=== PATIENT | female | born 1930 | race Caucasian/White ===

== ENCOUNTER 2017-02-26 17:25 | Inpatient (IN) | payer MEDICARE, BC ==
[~2017-02-26] VITALS: Ht 152.4 cm; Wt 72.1 kg
--- NOTE | ~2017-02-26 | HP ---
PATIENT'S NAME: SHAUN BHATTI [facility] AGE: 86 Y [address] ROOM: [place] [address] LOCATION: GPCU ADMIT DATE: 02/26/2017 History & Physical DISCHARGE DATE: FAMILY PHYSICIAN: Esperanza Mosley MD ATTENDING PHYSICIAN: Esperanza Mosley DATE OF SERVICE: CHIEF COMPLAINT: Weakness. HISTORY OF PRESENT ILLNESS: The patient is an 86-year-old female who was brought in by family with considerable increased weakness over the course of the day. She does have known Parkinson's and her states that Dr. Michael has been changing some of her medications and he feels that it may be related to this. History seems to be somewhat unclear about how long that she has been on the recent change of medications as the bottle says that of beginning of February, but he states it has been just this past week. They deny her having any cold symptoms, respiratory symptoms, or any illness up to today's appointment. It was noted that she had a temperature upon admission to the emergency room. PAST MEDICAL HISTORY: Significant for coronary artery disease, chronic renal failure stage 3, hypertension, hypertriglyceridemia, hypokalemia, hyponatremia, iron deficiency anemia, paroxysmal atrial fibrillation, and prediabetes. PREVIOUS SURGICAL HISTORY: Includes a heart catheterization in [address] Gloria with stent placement as well as a pacemaker. CURRENT MEDICATIONS: 1. Omeprazole 40 mg q.a.m. 2. Potassium chloride 20 mEq daily. 3. Pravastatin 40 mg daily. 4. Xarelto 15 mg daily. 5. Trihexyphenidyl 2.5 mg b.i.d. 6. Norvasc 10 mg daily. 7. TriCor 145 mg daily. 8. Flonase nasal spray. 9. Xyzal 5 mg daily. 10. Cozaar 100 mg daily. 11. Metoprolol 25 mg daily. ALLERGIES: PATIENT'S NAME: SHAUN BHATTI [facility] AGE: 86 Y [address] ROOM: [place] [address] LOCATION: GPCU ADMIT DATE: 02/26/2017 History & Physical DISCHARGE DATE: FAMILY PHYSICIAN: Esperanza Mosley MD ATTENDING PHYSICIAN: Dimitri,Esperanza M TO CLARITHROMYCIN, CODEINE, VYTORIN, PENICILLIN, SULFA, AND AMLODIPINE PER CLINIC NOTE FACE SHEET. FAMILY HISTORY: Noncontributory. SOCIAL HISTORY: The patient lives at home, does not smoke or use alcohol. REVIEW OF SYSTEMS: GENERAL: No recent weight loss or weight gain. Does have current fever. HEENT: Has had an infection in her left eye recently. CARDIOVASCULAR: Does have a pacemaker. Denies any chest pain. PULMONARY: Denies shortness of breath, cough, or hemoptysis. GI: No diarrhea, constipation, or abdominal pain. MUSCULOSKELETAL: Does have diffuse weakness. PHYSICAL EXAMINATION: VITAL SIGNS: Please refer to nursing notes for details. GENERAL: This is an alert female who does know her current state of place, date is unknown. HEENT: Left eye is little swollen. Conjunctivae are clear. Mouth moist. NECK: Supple with no lymphadenopathy. HEART: Regular. LUNGS: Clear to auscultation bilaterally. ABDOMEN: Obese, soft, and nontender. : Not done. EXTREMITIES: No clubbing, cyanosis, or edema. Good pedal pulses. LABORATORY DATA: Lactate of 1.4. CBC with white count of 10 with 87% neutrophils, 6.8% lymphocytes; hemoglobin 12.5. INR 1.07. Urinalysis showed 2-5 red blood cells, 2-5 epithelials with rare bacteria. Culture is pending. Procalcitonin is negative. CMP is stable. Cardiac troponin is negative. ProBNP is 1744. PET CT was negative. ASSESSMENT: 1. Weakness. 2. Parkinson's. 3. Change in mental status. 4. Hypertension. 5. Elevated proBNP. 6. Hyperlipidemia. PLAN: PATIENT'S NAME: SHAUN BHATTI [facility] AGE: 86 Y [address] ROOM: [address] [address] LOCATION: GPCU ADMIT DATE: 02/26/2017 History & Physical DISCHARGE DATE: FAMILY PHYSICIAN: Esperanza Mosley MD ATTENDING PHYSICIAN: Esperanza Mosley At this time, we will admit for admission due to the weakness and new fever. Urine culture as well as blood cultures have been obtained. We will cover with Levaquin 500 mg IV for tonight until preliminary cultures are back. We will also give her one dose of Lasix p.o. We will have Dr. Michael see in the morning as he has been managing her Parkinson's. Dr. Mosley will resume care as well. MD LAURA BARRETT/nu /[id number] D: [id number] T: [id number] HISTORY & PHYSICAL
--- NOTE | ~2017-02-26 | ECHO ---
Transthoracic Echocardiography Report (TTE) Demographics Patient Name SHAUN BHATTI Date of Study 03/10/2017 Patient Number [id number] Visit Number [id number] Date of 1930 Room Number G6315 Accession Number [id number] Gender Female Age 86 year(s) Referring Dimitri Galeas MD Kiln Burner Tutu Gonzalez RVGricel, Physician RDCS Physician Interpreting Patti Burroughs Mold Parter Physician A Supervising Ordering Physician Patti Burroughs MD/NEENA Garcia MD Nurse Stress Tool And Die Manager Conclusions Summary Limited echo for follow up pericardiocentesis to assess pericardial effusion. The estimated left ventricular ejection fraction is 60-65%. Trivial global pericardial effusion. There is no echocardiographic evidence of cardiac tamponade. Procedure Type of Study TTE procedure:Echo Limited w/o Contrast. Procedure Date Date: 03/10/2017 Start: 10:08 AM Study Location: Inpatient Portable Technical Quality: Adequate visualization Indications:Follow up post pericardiocentesis. Appropriate Use Criteria: 8 Patient Status: Routine HR: 60 bpm BP: 161/92 mmHg Allergies - Codiene. - Penicillin. - Sulfa. - Penicillin. - Sulfa. - Codiene. M-Mode/2D Measurements EF Estimated: 60 % Findings Left Ventricle Estimated EF: 60 %. Pericardial Effusion Trivial global pericardial effusion. There is no echocardiographic evidence of cardiac tamponade. Signature dtt: Sharon Armstrong dtd: 03/10/17 1008 Physician Self Edit
--- NOTE | ~2017-02-26 | DS ---
PATIENT'S NAME: SHAUN BHATTI [facility] AGE: 86 Y [address] ROOM: [address] [address] [facility] ADMIT DATE: 02/28/2017 Discharge Summary DISCHARGE DATE: 03/13/2017 FAMILY PHYSICIAN: Esperanza Mosley MD ATTENDING PHYSICIAN: Esperanza Mosley ADDENDUM: Discharge process took approximately 45 minutes. MD DARIUS HAYDENE/modl /[id number] d: 03/14/17 0141 t: 03/15/17 0848, DISCHARGE SUMMARY
--- NOTE | ~2017-02-26 | CATH ---
Cardiac Diagnostic Report Demographics Patient Name DAVY Garcia Gender Female Date of 1930 Age 86 year(s) Patient Number [id number] Date of Study 03/08/2017 Visit Number [id number] Room Number G6315 [place] [id number] Ht 152.4 cm Wt 74.39 kg Referring Dimitri Galeas MD Primary Physician Physician Performing Efstratiou Secondary Physician Physician Manjeet Gracia MD Diagnostic Efstratiou Assisting Physician Physician Manjeet Garcia MD Interventional Physician Associate Professor Of Archaeology Physician Findings and Conclusions Diagnostic Findings and Conclusion Pericardial fluid. Diagnostic Recommendations Pericardiocentesis. 470 ml of dark, sanguinous fluid drained with no complications. Procedure Description The patient was brought to the diagnostic cardiac catheterization-EP laboratory in the fasting, non-sedated state. Informed consent was obtained in the written and verbal form after the risks and benefits were explained. The patient had no further questions and agreed to proceed. The planned puncture-incision site(s) were shaved and prepped with ChloraPrep and draped in the usual sterile manner. Supplemental oxygen was delivered by a registered nurse under physician guidance. Surface ECG rhythm, blood pressure measurement, and pulse oximetry were monitored throughout the procedure. Pericardiocentesis. A long, thin-walled needle was advanced with fluoroscopic monitoring, from the subxiphoid approach, until fluid was aspirated from the pericardial space. At the conclusion of the procedure, the pericardial catheter was sutured in place and attached to a specimen bag under gravity drainage. A sterile dressing was applied. The patient was transferred to a regular nursing floor via cart accompanied by a nurse. The patient left the laboratory in stable condition. Diagnostic Cath Status: Urgent Procedure Procedure Type Diagnostic procedure:Misc:, Periocardiocentesis The procedure was explained in detail to the patient. Risks, complications and alternative treatments were reviewed. Written consent was obtained. Medications Reviewed with Patient prior to Procedure. Procedure Data Procedure Date Date: 03/08/2017Start: 04:45 PMEnd: 05:20 PM Contrast Material - Isovue 3700 ml Fluoroscopy Time: Diagnostic: 2:26 minutes. Total: 2:26 minutes. Fluoroscopy Dose: Diagnostic: 27 mGy. Total: 27 mGy. Medical History Performed Procedures and Imaging Results - Echocardiographywas performed on 03/06/2017. Allergies - Codiene. - Penicillin. - Sulfa. - Penicillin. - Sulfa. - Codiene. Risk Factors The patient risk factors include:hypertension and family history of premature CAD. Admission Data Admission Date: 02/28/2017 Admission Time: 11:00 AM Admit Source: Emergency department Insurance Payors: Medicare. Hemodynamics Condition: Rest O2 Consumption: Estimated: 145.99Heart Rate: 60 bpm Shunts Oxygen Values O2 Capacity 142.8 O2 Consumption 145.99 Signatures dtt: Sharon Armstrong dtd: 03/08/17 2113 Physician Self Edit
--- NOTE | ~2017-02-26 | ER ---
PATIENT'S NAME: SHAUN BHATTI [facility] AGE: 86 Y [address] ROOM: [address] [place], [place] [address] LOCATION: GPCU ADMIT DATE: 02/26/2017 ER/Outpatient Report DISCHARGE DATE: FAMILY PHYSICIAN: Esperanza Mosley MD ATTENDING PHYSICIAN: Esperanza Mosley HISTORY OF PRESENT ILLNESS: This is an 86-year-old female who was signed out to me at change of shift from Dr. Dodd. Briefly, she is coming in with altered mental status, generalized weakness, and fever 101.7 here. Lab work had been sent and she was pending lab work, imaging, and reassessment. So, when I evaluated the patient, the patient is alert and oriented to who she is, where she is, but she is slow to answer questions which her family says is not normal for her. She also appears to have generalized weakness. She has decreased strength in bilateral lower and upper extremities, but it is not worse on one side. LABORATORY DATA AND X-RAYS: So, the CT head initially is negative for any stroke or bleed. Her chest x- ray appears unremarkable as well. Her EKG shows a ventricularly paced rhythm which is same as before. Lactic acid is 1.4. WBC is 10, H and H is 12.5/37.2, platelets are 418. No bandemia. PTT is 24, PT 11.2, INR is 1.07. Procalcitonin is less than 0.05. Her CMS shows a sodium of 131, potassium 4.5, chloride 99, CO2 is 23. BUN is 12, creatinine is 0.9. Alkaline phosphatase is 83, AST is 23, ALT 17, GFR 58, troponin is less than 0.04. ProBNP is 1744. UA shows leukocytes of 25, but negative nitrites, 0 to 2 wbcs, and rare bacteria. I do not think that is the cause of her fever. I went back to reassess her after she had received some antipyretics and she still continues to be weak. Given her age and comorbidities, we would admit her. Discussed this with Dr. Grace Fairchild covering for Dr. Mosley. The patient will be admitted in stable condition. IMPRESSION: Generalized weakness, fever. MD VIJAYA ABBOTT/nu /[id number] d: 02/27/17 0418 t: 02/27/17 0608, OUTPATIENT REPORT
--- NOTE | ~2017-02-26 | ER ---
PATIENT'S NAME: SHAUN BHATTI [facility] AGE: 86 Y [address] ROOM: [place] [address] LOCATION: GPCU ADMIT DATE: 02/26/2017 ER/Outpatient Report DISCHARGE DATE: FAMILY PHYSICIAN: Esperanza Mosley MD ATTENDING PHYSICIAN: Esperanza Mosley Time of Arrival: 1724. Time Seen: 1724. IDENTIFICATION: 86-year-old female. CHIEF COMPLAINT: Weakness. HISTORY OF PRESENT ILLNESS: The patient is an 86-year-old female, who lives at home with her . She has Parkinson disease. Per her family, she has become more and more weak over the past 3 days. Her speech was difficult to understand today and she was weak. They called thinking that maybe she had stroke-like symptoms. Pre- hospital, EMS reported a temperature of 102. She was negative on their stroke screening and she was transported to the hospital. On arrival here, the patient is confused. Some history is obtained from her, but most is obtained from the paramedics. The patient denies any complaints. PAST MEDICAL HISTORY: ALLERGIES: TO CODEINE, PENICILLIN, AND SULFA. CURRENT MEDICATIONS: 1. Primidone 50 mg 2 tabs in the morning and 3 at bedtime, but they were reportedly weaning this, so I do not know the accurate dose. 2. Trihexyphenidyl 5 mg b.i.d. 3. KCl 20 mEq daily. 4. Losartan 100 mg daily. 5. Omeprazole 40 mg daily. 6. Amlodipine 10 mg daily. 7. Fenofibrate 145 mg daily. 8. Metoprolol ER 25 mg daily. 9. Xarelto 15 mg daily. 10. Levocetirizine 5 mg at bedtime. 11. Pravastatin 40 mg at bedtime. 12. Furosemide 40 mg daily. 13. Metoprolol 25 mg daily. PATIENT'S NAME: SHAUN BHATTI [facility] AGE: 86 Y [address] ROOM: [place] [address] LOCATION: GPCU ADMIT DATE: 02/26/2017 ER/Outpatient Report DISCHARGE DATE: FAMILY PHYSICIAN: Esperanza Mosley MD ATTENDING PHYSICIAN: Esperanza Mosley 14. Omeprazole 40 mg daily. MEDICAL PROBLEMS: Parkinson disease, hyperlipidemia, hypertension, atrial fibrillation, on chronic anticoagulation, bilateral hearing aids, congestive heart failure. PRIOR SURGERIES: Pacemaker, tonsillectomy, and cataract surgery. SOCIAL HISTORY: The patient lives at home with her here in [place]. Tobacco use, none noted. Alcohol use, unknown. Drug use, unknown. FAMILY HISTORY: Unknown. REVIEW OF SYSTEMS: Really unable to obtain from this patient. PHYSICAL EXAMINATION: VITAL SIGNS: Height 5 feet, weight 54.49 kg, blood pressure 203/80, recheck was 180/80, pulse 57, respirations 20, temperature 101.7, sats 92% on room air. GENERAL: 86-year-old female, who is difficult to understand and leading a little bit to the right. HEENT: Head: Normocephalic. Ears; TMs not visualized to both eyes. Eyes; pupils equal. The patient does have a quite a bit of mattering from her left eye. Nose; mucosa pink. No lesions. Mouth; no lesions. Pharynx benign. NECK: Supple. No lymphadenopathy. No nuchal rigidity. LUNGS: Clear to auscultation. Few rales in the bases. HEART: Regular rate and rhythm. ABDOMEN: Bowel sounds present. Soft, nondistended, nontender. SKIN: [place], warm, and dry. No lesions or rashes noted. NEUROLOGIC: The patient is alert, but not oriented to place, time, or situation. Cranial nerves 2 through 12 grossly intact. Motor strength 5/5 throughout. Sensation is intact to light touch. The patient has Edmundo wraps on both of her lower extremities, these were removed. She has no ulcers or rashes underneath them. She does have some 1+ bilateral lower extremity edema. No calf tenderness. IMPRESSION: Labs have been ordered to include CBC, blood cultures x2. Cath, UA, urine culture, CMS, lactate, procalcitonin, troponin, proBNP, PT, PTT, one-view chest x-ray, and an EKG as well as head CT. It is shift change and Dr. Mobley will assume care. PATIENT'S NAME: SHAUN BHATTI [facility] AGE: 86 Y [address] ROOM: [place] [address] LOCATION: GPCU ADMIT DATE: 02/26/2017 ER/Outpatient Report DISCHARGE DATE: FAMILY PHYSICIAN: Esperanza Mosley MD ATTENDING PHYSICIAN: Esperanza Mosley MD NAGA CASTANO/nu /[id number] d: 02/26/172316 t: 03/06/172030, OUTPATIENT REPORT
--- NOTE | ~2017-02-26 | CON ---
PATIENT'S NAME: SHAUN BHATTI [facility] AGE: 86 Y [address] ROOM: [address] [place], [place] [address] [facility] ADMIT DATE: 02/28/2017 Consultation DISCHARGE DATE: FAMILY PHYSICIAN: Esperanza Mosley MD ATTENDING PHYSICIAN: Esperanza Mosley DATE OF CONSULTATION: 03/11/2017 REFERRING PHYSICIAN: ALLAN MARTINEZ MD TIME OF SERVICE: 4:00 p.m. HISTORY OF PRESENT ILLNESS: Ms. Bhatti is known to our clinic. We initially saw the patient for a workup for diagnosis of Parkinson's disease. She is an 86-year-old female patient whom I saw back in early July 2016. She had typical findings of Parkinson's disease with slight blunting of facial expression. Otherwise, she had subtle features of bradykinesia with stooped posture when she walked. Back in 2015, she was complaining about a tremor that was variable in her left upper extremity, but at times was also noted in her right upper extremity. Did not have any particular rest tremor at that time. In March 2016, she was given the firm diagnosis of Parkinson's and was started on Sinemet 25/100 mg tablet 3 times a day along with the medication entacapone 200 mg with each dose. In the intervening months, it was noted that the patient really did not improve with the Sinemet including both with bradykinesia as well as with improvement in the speed of her gait. Furthermore, the tremor was not improved with the Sinemet either. Continued to have blunting of her facial expression and diminished blinking. Her tremor on the left side was no better as mentioned. Motor testing remains slow. Thus, with discussions with the family especially the , we decided that with a trial of this medication, the patient did not respond to the parkinsonian's medication that we would focus on treating the tremor alone. By the end of the year, we did trial of amantadine, to stop the medication because she found this medications to be causing her nausea, continued to have typical parkinsonian features as mentioned. Beginning of the year on July 30, I prescribed the medication of Mysoline. I started this medication at a very low dose of 50 mg in the evening with a goal to workup the medication over the course of the next few weeks to months. According to the by the time I saw her in October, she stated that the Mysoline had worked somewhat for the tremor, but it was still rather temporary, and after about one month the tremors were not controlled and the medication had lost its effect. New medication propranolol was started at 40 mg daily and increased to twice a day dosing by late October. This too was not effective. When we came down on the Mysoline to place on the beta elmira, we noted that her tremors became worse. Thus, we opted to restart the Mysoline to target a higher dose. She did not have any problems with the sedation at that time with PATIENT'S NAME: SHAUN BHATTI [facility] AGE: 86 Y [address] ROOM: [address] [address] [facility] AD[facility] DATE: 02/28/2017 Consultation DISCHARGE DATE: FAMILY PHYSICIAN: Esperanza Mosley MD ATTENDING PHYSICIAN: Esperanza Mosley this medication. I was able to fine tune the medication higher to a dose of 250 mg tablets in the a.m. and 350 mg at bedtime. These were fairly high doses. It finally did seem to get the tremors, which were extremely bothersome to the patient and the , under better control. Finally, for additional control of her left arm tremor and noted right hand tremor with action, a dose of Artane was also added. This dosing at 5 mg twice a day seemed to be a bit sedating for the patient, and I pulled back the dosing of the medication to half doses of 2.5 mg twice a day after I spoke to the patient's on the phone. The last time I had spoken to him, he said that the sedation had improved significantly, but she was still a bit on the tired side. I had been told about her admission to the hospital after did take her in due to progressive weakness. It is unclear if this was related to any of the changes with the new medications as I had discussions with the patient's , had stated that she was doing a lot better at home. The patient had no symptoms of upper respiratory tract infection, diarrhea. Seeing the patient now in the hospital, according to nursing staff, she has been very tired on a daily basis and hardly participating and doing any activities. She did have a few hours of increased strength and less fatigue a few days ago, but this was short lasting. The patient was able to communicate with me but mostly wanted to be left alone and sleep. PRIOR MEDICAL HISTORY: Significant history of chronic renal insufficiency, stage 3; stage 3 renal failure; hypertension; hypokalemia; hyponatremia; iron-deficiency anemia; paroxysmal atrial fibrillation, on anticoagulation. PAST SURGICAL HISTORY: Coronary catheterization back in 2013 with stent placement. CURRENT MEDICATIONS AT HOME: 1. Xarelto 15 mg daily. 2. Pravastatin 40 mg daily. 3. Tricor 145 mg daily. 4. Norvasc 10 mg daily. 5. Omeprazole 40 mg q.a.m. 6. Metoprolol 25 mg daily. 7. Currently, the dosing of the Mysoline will be weaned down to every other day, then off. 8. Currently discontinuing the Artane 2.5 mg twice a day. FAMILY HISTORY: Noncontributory. ALLERGIES: SHE HAS MULTIPLE ALLERGIES TO MEDICATIONS INCLUDE PENICILLIN, SULFA, PATIENT'S NAME: SHAUN BHATTI [facility] AGE: 86 Y [address] ROOM: [address] [address] [facility] ADMIT DATE: 02/28/2017 Consultation DISCHARGE DATE: FAMILY PHYSICIAN: Esperanza Mosley MD ATTENDING PHYSICIAN: Esperanza Mosley AMLODIPINE, AND VYTORIN. PHYSICAL EXAMINATION: GENERAL: The patient is sleepy but arousable. She answers simple questions and follows basic commands to squeeze my hand, raise her arms but does not participate in any conversation. She is mostly anxious and withdrawing of her limbs. She appears to be confused. She is fairly well. She appears to be properly nourished. VITAL SIGNS: Revealed pulse 64, respiration 18, blood pressure 156/97, temperature is 37.2. NEUROLOGIC: Cranial nerves; pupils are equal and reactive to light. The patient does not follow eye movements. Her visual gonzalez are grossly intact. She blinks to threat. She has normal facial symmetry. Her tone reveals increased tone in the bilateral upper extremities, somewhat more prominent in her left upper extremity with a noted occasional tremor with movement of the right upper extremity. Her lower extremity tone is normal. She does not activate her legs. She withdraws to pain both her upper and lower extremities. She is not participating in coordination testing, and the patient was too sleepy to ambulate. IMPRESSION: It is quite possible that Ms. Bhatti is overmedicated with the different medications that I have tried to control her tremors. I spoke today with Dr. Mosley, and I just felt it would be severino to discontinue her sedating medications of Mysoline and Artane, but we will just gradually bring down the Mysoline over the course of the next few days. Since she has been mostly off the Mysoline and has only been on it intermittently, the chance for withdrawal seizures is probably quite low. It is best to just remove the potential sedative medications. Each medication alone may not be sedating but in combination they may be causing her to be sleepy and even a bit delirious. MD SOFYA COTO/nu /[id number] d: 03/12/172119 t: 03/19/172104, CONSULTATION REPORT
--- NOTE | ~2017-02-26 | ECHO ---
Transthoracic Echocardiography Report (TTE) Demographics Patient Name SHAUN BHATTI Date of Study 03/09/2017 Patient Number [id number] Visit Number [id number] Date of 1930 Room Number G6315 Gender Female Number Age 86 year(s) Referring Patti Burroughs Railcar Brake Operator Regina Navas [facility], Physician Radha GRACE RVT Physician Interpreting Patti Nurse Staff Industrial Physician Manjeet Garcia MD Supervising Ordering Dimitri Galeas MD, MD/P Physician Patti Garcia MD Nurse Stress Chart Writer Conclusions Summary The estimated left ventricular ejection fraction is 60-65%. Limited echo to assess effusion Small pericardial effusion. There is no echocardiographic evidence of cardiac tamponade. Procedure Type of Study TTE procedure:Echo Limited w/o Contrast. Procedure Date Date: 03/09/2017 Start: 12:41 PM Study Location: Inpatient Portable Technical Quality: Adequate visualization Indications:Evaluate for pericardial effusion. Additional Indications:post tap of effusion Appropriate Use Criteria: 9 Patient Status: Routine Rhythm: Within normal limits HR: 60 bpm BP: 160/82 mmHg Allergies - Codiene. - Penicillin. - Sulfa. - Penicillin. - Sulfa. - Codiene. M-Mode/2D Measurements Post Pericard Effusion: 1.8 cm Findings Pericardial Effusion Small pericardial effusion. There is no echocardiographic evidence of cardiac tamponade. Signature dtt: Sharon Armstrong dtd: 03/09/17 1241 Physician Self Edit
--- NOTE | ~2017-02-26 | ECHO ---
Transthoracic Echocardiography Report (TTE) Demographics Patient Name SHAUN BHATTI Date of Study 03/06/2017 Patient Number [id number] Visit Number [id number] Date of 1930 Room Number G6311 Accession Number [id number] Gender Female Age 86 year(s) Referring Dimitri Galeas MD Sugar Boiler Jillian Rea RVT Physician Physician Interpreting Patti Burroughs International Trade Compliance Manager Physician Radha GRACE Supervising Ordering Physician Dimitri Galeas MD, MD/P Nurse Stress Law Enforcement Instructor Conclusions Contractility Score Summary Normal Left Ventricular contractility was noted. Summary The estimated left ventricular ejection fraction is 70-75%. Mild concentric left ventricular hypertrophy. Diastolic function indeterminate due to patient's arrhythmia. Left ventricle appears hyperdynamic. Mildly reduced right ventricular function. Mildly dilated right ventricle. Device lead noted in the right ventricle. Moderate tricuspid regurgitation by color Doppler. There is moderate pulmonary hypertension. The pulmonary pressure (RVSP) is 58 mmHg. Moderate to large pericardial effusion. There is no echocardiographic evidence of cardiac tamponade. Procedure Type of Study TTE procedure:2D Echocardiogram. Procedure Date Date: 03/06/2017 Start: 01:32 PM Study Location: Inpatient Portable Technical Quality: Adequate visualization Indications:CHF. Appropriate Use Criteria: 9 Patient Status: Routine HR: 65 bpm BP: 167/82 mmHg Allergies - Codiene. - Penicillin. - Sulfa. M-Mode/2D Measurements LV Diastolic Dimension: 3.43 cm LV Systolic Dimension: 2.41 cm LV Septum Diastolic: 1.33 cm LV PW Diastolic: 1.22 cm AO Root Dimension: 1.9 cm Cardiac Output: 3.67 l/min AV Cusp Separation: 1.5 cm RV Diastolic Dimension: 1.72 cm LVOT: 1.7 cm LVOT VTI: 24.9 cm RV Base: 2.85 cm LV Stroke volume: 56.49 ml RV Length: 5.1 cm TAPSE: 1.4 cm TDI-S': 10.2 cm/s Doppler Measurements AV Peak Velocity: 2.07 m/s MV Peak E-Wave: 1.13 m/s AV Peak Gradient: 17.14 mmHg AV Mean Gradient: 8 mmHg MV P1/2t: 58 msec LVOT Peak Velocity: 1.25 m/s TR Velocity:3.46 m/s PV Peak Velocity: 1.21 m/s TR Gradient:47.89 mmHg PV Peak Gradient: 5.86 mmHg Estimated RAP:10 mmHg Estimated PASP: 57.89 mmHg Estimated RVSP: 58 mmHg A' Septal Velocity: 0.04 m/s E' Septal Velocity: 0.09 m/s A' Lateral Velocity: 0.05 m/s E' Lateral Velocity: 0.07 m/s Findings Left Ventricle Mild concentric left ventricular hypertrophy. Diastolic function indeterminate due to patient's arrhythmia. Left ventricle appears hyperdynamic. Right Ventricle Mildly reduced right ventricular function. Mildly dilated right ventricle. Device lead noted in the right ventricle. Left Atrium Normal left atrial size. Right Atrium The right atrium is mildly dilated. IVC measures 1.81 cm without inspiratory collapse. Device lead seen in the right atrium. Mitral Valve Mild calcification of the mitral valve. Mild mitral regurgitation by color Doppler. Aortic Valve The aortic valve is mildly sclerotic. Tricuspid Valve Moderate tricuspid regurgitation by color Doppler. There is moderate pulmonary hypertension. The pulmonary pressure (RVSP) is 58 mmHg. Pulmonic Valve Mild pulmonic valve regurgitation by color Doppler. Pericardial Effusion Moderate to large pericardial effusion. There is no echocardiographic evidence of cardiac tamponade. Miscellaneous Visualized portions of the aortic root and ascending aorta appear normal in size. Pleural Effusion There is no pleural effusion. Contractility Score LV regional wall motion:(0-Non visualized 1-Normal 2-Hypokinesis 3-Akinesis 4-Dyskinesis 5-Aneurysm) Signature dtt: EfsSharon doll dtd: 03/06/17 1332 Physician Self Edit
--- NOTE | ~2017-02-26 | DS ---
PATIENT'S NAME: SHAUN BHATTI [facility] AGE: 86 Y [address] ROOM: G6315 [place], [place] [address] LOCATION: GPCU ADMIT DATE: 02/28/2017 Discharge Summary DISCHARGE DATE: 03/13/2017 FAMILY PHYSICIAN: Esperanza Mosley MD ATTENDING PHYSICIAN: Esperanza Mosley PRINCIPAL DIAGNOSES: 1. Sepsis syndrome. 2. Pneumonia. 3. Acute pericarditis with pericardial effusion. 4. Pharyngeal aspiration. 5. Confusion. 6. Sedation. 7. Urinary tract infection. 8. Adverse effects due to Mysoline. 9. Congestive heart failure, stable, diastolic. 10. Chronic atrial fibrillation. 11. Coronary artery disease. SUMMARY: Shaun is an 86-year-old female who was admitted for fever, lethargy, and weakness. Septic workup was performed. She was placed on IV Levaquin. She was found to have pneumonia. She also had urinary tract infection. Levaquin was continued for a total of 10 days. She was extremely fatigued and lethargic. Speech Therapy was consulted regarding possible aspiration. She passed her modified barium swallow except had difficulty moving the food from the front to the back of her throat. An echocardiogram was performed as she had some fluid overload issues and signs of acute congestive heart failure. Dr. Armstrong was consulted. She was found to have a large pericardial effusion, which was drained. Echo was followed for couple of days after that and had no recurrence. Testing of the fluid has been negative, cultures negative, acid-fast bacilli negative. No evidence of any malignant cells. Had Neurology see her as she is very lethargic and sedated. It was found that the Mysoline had been reinstituted and she had been tapering off that at home. We discontinued her Mysoline in the morning and then decreased it to every other night for 3 doses and being tapered off. She is improved in her cognition at this time. She is having more parkinsonian tremor, but would rather have her alert. DISPOSITION: Shaun was dismissed on 03/13/2017 in improved condition. She will be going to [facility] this afternoon. We will continue physical therapy, occupational therapy, and speech therapy. She is on oxygen. We will keep her saturations above 90%. DISMISSAL MEDICATIONS: 1. Norvasc 10 mg daily for hypertension. PATIENT'S NAME: SHAUN BHATTI [facility] AGE: 86 Y [address] ROOM: [address] [place] [address] [facility] ADMIT DATE: 02/28/2017 Discharge Summary DISCHARGE DATE: 03/13/2017 FAMILY PHYSICIAN: Esperanza Mosley MD ATTENDING PHYSICIAN: Esperanza Mosley 2. Losartan 100 mg daily for hypertension. 3. Metoprolol succinate 50 mg b.i.d. for hypertension. 4. Omeprazole 40 mg every morning for GERD. 5. She is being tapered off the Mysoline 150 mg every 8 hours with last dose on 03/16/2017. 6. Xarelto 15 mg daily for chronic atrial fibrillation. 7. Tylenol 650 q.4 hours p.r.n. for pain or fever. 8. Flonase 2 sprays daily for allergic rhinitis. 9. Levocetirizine 5 mg at bedtime for allergic rhinitis. 10. TriCor 145 mg daily. 11. Pravastatin 40 mg daily. I will plan to see her in 30 days or sooner if problems. Depends on how well she does with Therapy as to whether or not she can go back to her own home. Her has been very closely involved in her meals and activities of daily living. She had been mobile prior to admission, but just extremely weak and not able to go to her own home. PROGNOSIS: Fair. MD SHANIA HAYDEN/nu /[id number] d: 03/14/17 0243 t: 03/15/17 0845, DISCHARGE SUMMARY
--- NOTE | ~2017-02-26 | ECHO ---
Transthoracic Echocardiography Report (TTE) Demographics Patient Name SHAUN BHATTI Date of Study 03/08/2017 Patient Number [id number] Visit Number [id number] Date of 1930 Room Number G6315 Accession Number [id number] Gender Female Age 86 year(s) Referring Dimitri Galeas MD Material Handler Floorperson Tutu Gonzalez [facility], Physician RDCS Physician Interpreting Patti Burroughs Supervising Bailiff Physician A MD Supervising Ordering Physician Patti Burroughs MD/NEENA Garcia MD Nurse Stress High Risk Ob Conclusions Summary Limited echo for pericardiocentesis. Large effusion at baseline with marked reduction after catheter drainage Procedure Type of Study TTE procedure:Echo Limited w/o Contrast. Procedure Date Date: 03/08/2017 Start: 04:33 PM Study Location: Inpatient Portable Technical Quality: Good visualization Indications:Pericardial effusion. Appropriate Use Criteria: 8 Patient Status: Routine HR: 58 bpm Allergies - Codiene. - Penicillin. - Sulfa. - Penicillin. - Sulfa. - Codiene. Signature dtt: Sharon Armstrong dtd: 03/08/17 1633 Physician Self Edit
--- NOTE | ~2017-02-26 | CON ---
PATIENT'S NAME: SHAUN BHATTI [facility] AGE: 86 Y [address] ROOM: [place] [address] LOCATION: GPCU ADMIT DATE: 02/28/2017 Consultation DISCHARGE DATE: FAMILY PHYSICIAN: Esperanza Mosley MD ATTENDING PHYSICIAN: Esperanza Mosley DATE OF CONSULTATION: 03/06/2017 REFERRING PHYSICIAN: ALLAN MARTINEZ MD REFERRING PHYSICIAN: Dr. Mosley. HISTORY OF PRESENT ILLNESS: The patient is an 86-year-old woman, who was admitted on February 26, 2017, when she was brought to the emergency room by her family, because of progressive weakness and a fever of 102. The patient has advanced Parkinson disease and her relatives impression was manipulation of Parkinson medication was responsible for the deterioration. The patient was admitted because of all her comorbidities. She has been followed at [facility], although she missed the last clinic appointment, but she was [facility]. PAST MEDICAL HISTORY: 1. Her pertinent cardiac history is moderate coronary artery disease with 60% stenosis of the right coronary artery by catheterization in 2013 and nonischemic FFR treated with medications. Secondary to complete heart block a permanent pacemaker is in place since July 2013. 2. Intermittent atrial flutter with most recent pacemaker interrogation, 3.9% burden. 3. Diastolic heart failure. 4. Systemic hypertension. 5. History of deep vein thrombosis with pulmonary embolism. I am asked to see the patient in consultation. She is unable to provide any history or review of systems. Her also is quite forgetful and could not verify essential part of her past medical history, so I depend mostly on the review of extensive previous medical records. 6. Hyponatremia in 2016, possibly related to thiazide diuretic and some intermittent noted chronic kidney disease, stage 3. OUTPATIENT MEDICATIONS: Included: 1. Levocetirizine. 2. Omeprazole. 3. Potassium chloride. 4. Amlodipine. PATIENT'S NAME: SHAUN BHATTI [facility] AGE: 86 Y [address] ROOM: [place] [address] LOCATION: GPCU ADMIT DATE: 02/28/2017 Consultation DISCHARGE DATE: FAMILY PHYSICIAN: Esperanza Mosley MD ATTENDING PHYSICIAN: Esperanza Mosley 5. Metoprolol succinate. 6. Rivaroxaban. 7. Flonase. 8. Fenofibrate. 9. Pravastatin. 10. Losartan. 11. Trihexyphenidyl. 12. Primidone. Currently, she is on: 1. Levaquin intravenous. 2. Protonix intravenous. 3. Artane 2.5 mg daily. 4. Cozaar 100 mg daily. 5. Mysoline 100 mg in a.m. and 150 mg in evening. 6. Norvasc 10 mg daily. 7. Sanctura 20 mg daily. 8. Toprol 50 mg twice a day. 9. Xarelto 15 mg daily. PAST SURGICAL HISTORY: It is debatable. She had bilateral breast biopsy and tonsillectomy and bilateral cataract. Also, there is mention of some partial lung resection, which her denied, but as I said she is not very dependable historian. Bilateral endovenous great saphenous vein ablation in 2013. SOCIAL HISTORY: The patient lives at home with her and does not use tobacco or alcohol. FAMILY HISTORY: Her father had Parkinson disease and her mother had coronary artery bypass surgery. REVIEW OF SYSTEMS: In addition to what noted in the history of present illness, there is some history of cough and urinary incontinence. Remaining systems negative. PHYSICAL EXAMINATION: GENERAL: The patient is an elderly woman, who opens the eyes, but the left eye appears to be edematous. She mostly moans, cannot have a proper conversation. VITAL SIGNS: Height 5 feet, weight 74.6 kg, blood pressure 141/60, pulse 68, and temperature 97.6. NECK: She has moderate jugular venous distention. No carotid bruits. PATIENT'S NAME: SHAUN BHATTI [facility] AGE: 86 Y [address] ROOM: G6311 [place], [place] [address] [facility] ADMIT DATE: 02/28/2017 Consultation DISCHARGE DATE: FAMILY PHYSICIAN: Esperanza Mosley MD ATTENDING PHYSICIAN: Esperanza Mosley LUNGS: Few rales at the bases and some expiratory wheezes. HEART: Regular first and second heart sounds. No S3. No significant murmur. No rub. ABDOMEN: Obese. EXTREMITIES: Lower extremities, trace edema. DIAGNOSTIC STUDIES: ProBNP on admission was 1744 and today 4337. Troponin I on admission was negative, today 0.091. CK-MB was not measured on admission, today is normal 1.0. Her electrocardiogram shows atrial flutter and ventricular pacing. Chest x- ray, marked cardiomegaly. Echocardiogram was since obtained shows a large pericardial effusion without evidence of tamponade and normally hyperdynamic ejection fraction 70% to 75%, moderate pulmonary hypertension. So far her blood cultures have not grown anything and the urine showed contaminant. IMPRESSION: From a cardiac standpoint, there is a new development of a large pericardial effusion of unknown etiology. The patient does not appear clinically to have tamponade with pulsus paradoxus, although her proBNP has increased significantly since admission. She may eventually need draining after holding the anticoagulation secondary to chronic diastolic heart failure. Hypertension, adequately controlled. Thank you for allowing [facility] to contribute in the care of the patient. PANAYOTIS-CHERYL MORAN MD PE/modl /[id number] d: 03/07/17 1503 t: 03/08/17 1821, CONSULTATION REPORT
[~2017-02-26 17:25] MED LIST changes: -ASPIRIN81 MG PO; -COZAAR100 MG PO; -MYSOLINE50 MG PO; -PRIMIDONE50 MG PO; -TOBREX5 ML OPHTH; -TRIHEXYPHENIDYL5 MG PO; -TYLENOL325 MG PO
[2017-02-26 17:48] LABS: BASOPHIL % 0.2 %; EOSINOPHIL % 0.2 %; HEMATOCRIT 37.2 % (30.0-46.0); HEMOGLOBIN 12.5 g/dL (10.0-15.0); IMMATURE GRANULOCYTE % 0.3 %; LYMPHOCYTE # 0.7 K/uL (0.8-4.0); LYMPHOCYTE % 6.8 %; MCHC 33.6 gm/dL (32.0-36.5); MCV 83.4 fl (83.0-98.0); MONOCYTE # 0.6 K/uL (0.0-1.0); MONOCYTE % 5.5 %; MPV 9.4 fl (9.4-12.4); NEUTROPHIL # (ANC) 8.7 K/uL (1.8-7.8); NRBC % 0 /100WBC (0-0.00); PLATELET COUNT 418 K/uL (150-450); RDW-CV 15.4 % (11.9-14.6)
[2017-02-26 17:49] LABS: RBC 4.46 M/uL (3.00-5.00)
[2017-02-26 17:56] LABS: INR - (THERAPEUTIC) 1.07 (0.92-1.07); PROTIME 11.2 SECONDS (9.8-11.4); PTT 24 SECONDS (25-32)
[2017-02-26 18:09] LABS: BILIRUBIN URINE NEGATIVE (NEGATIVE); BLOOD URINE 50 /UL (NEGATIVE); COLOR URINE YELLOW (YELLOW); GLUCOSE URINE NEGATIVE (NEGATIVE); KETONE URINE 5 mg/dL (NEGATIVE); LEUKOCYTES URINE 25 /UL (NEGATIVE); NITRITE URINE NEGATIVE (NEGATIVE); PH URINE 6.5 (4.0-8.0); PROTEIN URINE 30 mg/dL (NEGATIVE); SPEC GRAVITY URINE 1.005 (1.003-1.035); TURBIDITY URINE CLEAR (CLEAR); UROBILINOGEN URINE NORMAL (NORMAL)
[2017-02-26 18:15] LABS: WBC URINE 0-2 #/HPF (NEGATIVE)
[2017-02-26 18:16] LABS: BACTERIA URINE RARE (NEGATIVE)
[2017-02-26 18:28] LABS: ALBUMIN 3.6 gm/dL (3.5-5.0); ALK PHOS 83 IU/L (33-138); ALT 17 IU/L (12-78); ANION GAP 13.5 (10.0-19.0); AST 23 IU/L (10-40); BLOOD UREA NITROGEN 12 mg/dL (6-24); CALCIUM 8.8 mg/dL (8.5-10.5); CHLORIDE 99 mMol/L (96-110); CO2 23 mMol/L (22-32); CREATININE 0.9 mg/dL (0.5-1.1); POTASSIUM 4.5 mMol/L (3.7-5.1); SODIUM 131 mMol/L (135-145); TOTAL BILIRUBIN 0.6 mg/dL (0.0-1.5); TOTAL PROTEIN 7.9 g/dL (6.0-8.4)
[2017-02-26] MEDS ORDERED: COZAAR100 MG PO (21:07)
[2017-02-26] MEDS ORDERED: TRIHEXYPHENIDYL5 MG PO (21:22)
--- NOTE | 2017-02-27 00:33 | NUR ---
Patient had a temp of 101.7 from an unknown origin with increased weakness over the past three days. Family brought patient to ED and was then trasnferred to PCU. Patient arrived to the floor at 2030. HR paced 50-60's. SBP 180's. O2 saturation of 94% on RA. Temp of 99.7. Lungs clear in the upper, diminished in lower lobes. Pin point sore to coccyx, reddened slightly. Incontinent of stool and urine. , daughter, and son in law present in room. Dr. Zavala to see patient.
[2017-02-27 03:45] LABS: BASOPHIL % 0.3 %; EOSINOPHIL % 0.1 %; HEMATOCRIT 31.8 % (30.0-46.0); HEMOGLOBIN 10.4 g/dL (10.0-15.0); IMMATURE GRANULOCYTE % 0.3 %; LYMPHOCYTE # 0.9 K/uL (0.8-4.0); LYMPHOCYTE % 11.7 %; MCH 27.5 pg (27.0-34.0); MCHC 32.7 gm/dL (32.0-36.5); MCV 84.1 fl (83.0-98.0); MONOCYTE % 12.7 %; MPV 9.5 fl (9.4-12.4); NEUTROPHIL # (ANC) 5.9 K/uL (1.8-7.8); NEUTROPHIL % 74.9 %; NRBC % 0 /100WBC (0-0.00); PLATELET COUNT 368 K/uL (150-450); RBC 3.78 M/uL (3.00-5.00); RDW-CV 15.4 % (11.9-14.6); WBC 7.9 K/uL (4.0-11.0)
--- NOTE | 2017-02-27 05:17 | NUR ---
Significant Event: Patient is alert. Oriented to person and place, disoriented to time. Speech is slow and talks in one word replies. Temps 98.4. Generalized weakness. Family states that this is a new change within past few days. L) eye mattery. Lungs clear upper and dim lower. Levoquin started. Incontinent x2. 2+ LE edema. Patient has been calm and cooperative with cares.
[2017-02-27] MEDS ORDERED: TOBREX5 ML OPHTH (06:00)
[2017-02-27] MEDS ORDERED: ASPIRIN81 MG PO (06:02)
[2017-02-27] MEDS ORDERED: MYSOLINE50 MG PO (11:41)
[2017-02-27] MEDS ORDERED: PRIMIDONE50 MG PO (11:41)
--- NOTE | 2017-02-27 12:36 | NUR ---
Reviewed chart and introduced self and care management services to patient and spouse at chairside. Spouse feeding patient. Asked them if they feel like pt will be safe to go home on discharge or if they would like to look into pt going to long term facility on discharge. Spouse says she will go home, he takes care of her. Offered option of Home Health and spouse says he would like that, has had [facility] before. Called VLADIMIR Pachecoloin puller Nurse with [facility] and she will see them and set up Home Health.
--- NOTE | 2017-02-27 16:53 | NUR ---
Significant Event: ALERT. MUMBLES AND DIFFICULT TO UNDERSTAND. AT TIMES WILL SAY A WORD OR TWO THAT IS CLEAR. INC. OF URINE. ROOM AIR. NO RESP. DISTRESS. AT BEDSIDE. PT. IS A FEEDER. NO OPEN SORES ON COCCOYX. REPOSITIONS. PT/OT WORKS WITH PT. UP IN CHAIR 2 ASSIST, WALKER, GAIT BELT.AFEBRILE. HAS PACEMAKER. Follow up: PLAN HOME WITH , AND HOME HEALTH
[2017-02-28 03:58] LABS: BASOPHIL % 0.3 %; EOSINOPHIL # 0.1 K/uL (0.0-0.5); EOSINOPHIL % 1.4 %; HEMATOCRIT 33.3 % (30.0-46.0); HEMOGLOBIN 11.1 g/dL (10.0-15.0); IMMATURE GRANULOCYTE % 0.5 %; LYMPHOCYTE # 0.8 K/uL (0.8-4.0); LYMPHOCYTE % 12.6 %; MCHC 33.3 gm/dL (32.0-36.5); MCV 84.1 fl (83.0-98.0); MONOCYTE # 0.8 K/uL (0.0-1.0); MONOCYTE % 11.4 %; MPV 9.6 fl (9.4-12.4); NEUTROPHIL # (ANC) 4.9 K/uL (1.8-7.8); NEUTROPHIL % 73.8 %; NRBC % 0 /100WBC (0-0.00); PLATELET COUNT 351 K/uL (150-450); RBC 3.96 M/uL (3.00-5.00); RDW-CV 15.7 % (11.9-14.6); WBC 6.6 K/uL (4.0-11.0)
[2017-02-28 04:06] LABS: ANION GAP 12.2 (10.0-19.0); CALCIUM 8.2 mg/dL (8.5-10.5); CREATININE 0.9 mg/dL (0.5-1.1); POTASSIUM 4.2 mMol/L (3.7-5.1)
--- NOTE | 2017-02-28 04:25 | NUR ---
Significant Event:Alert but forgetful and hard to understand at times. Afebrile. HTN on first assessment, notified and changed toprolol xl to BID BP after medication in 120s/50s. HR paced 59-70. Patient is a heavy 2 assist with walker and gaitbelt. PIV to R)hand saline locked, levaquin qhs. Patient in incontinent of urine. No BM noted. Follow up:Plan is home with home health. I feel that patient would benefit from PT/OT if that is available to her. Maybe a swallow study, patient was pocketing food in her check on my first assessment.
--- NOTE | 2017-02-28 15:17 | NUR ---
Significant Event: A/O X 3. MUMBLES AT TIMES. HAS PARKINSON'S SHAKES. DIFFICULT TO FEED SELF. AT BEDSIDE. PT. A 2 ASSIST FOR TRANSFERS. APPEITITE FAIR TODAY. GIVEN PRUNE JUICE TO HELP WITH BOWELS. HIGH TEMP 99.3 AX. HR PACED IN 60'S. ELEVATED B/P THIS A.M. GIVEN ORAL MEDS AND NOW IN 150'S. SATS 91% ON ROOM AIR. NO RESP. DISTRESS NOTED. DOES A EXP. GRUNTING NOISE, WHICH IS NORMAL FOR HER. INC. OF URINE. Follow up: CONT. PLAN OF CARES. PT. WILL STAY FOR IV ANTIBIOTICS FOR SEPSIS.
--- NOTE | 2017-03-01 06:18 | NUR ---
Significant Event: VSS. PATIENT HAD A TEMP OF 99.0 AT FIRST ASSESSMENT THIS SHIFT WHICH THEN WAS 100.1 AT SECOND ASSESSMENT. TYLENOL WAS GIVEN WHICH THEN LOWERED THE TEMP. SOCKS AND COMFORTER BLANKET WERE ALSO REMOVED. TEMP ON THIRD ASSESSMENT WAS 98.2. PATIENT HAS BEEN INCONTINENT THIS SHIFT AND HAD A SMALL INCONTINENT BM AT THE BEGINNING OF THE SHIFT. PATIENT IS ORIENTED TO SELF AND TIME BUT IS NOT ABLE TO REPORT WHERE SHE IS. PATIENT HAS BEEN RESTING IN BED THIS SHIFT AND HAS BEEN ROUTINELY REPOSITIONED. PATIENT CONTINUES TO HAVE AN AUDIBLE GRUNT UPON EXHALING AND CONTINUES TO HAVE A LOOSE NONPRODUCTIVE COUGH. LUNG SOUNDS HAVE BEEN CLEAR IN THE UPPER LOBES AND DIMINISHED IN THE LOWER LOBES. Follow up:
--- NOTE | 2017-03-01 11:45 | NUR ---
A-SCREENED D/T RN CONSULT D/T POOR ORAL INTAKE ADMITTED FOR FEVER FROM UNKNOWN ORIGIN, INCREASED IN WEAKNESS. HX: PARKINSONS. PINPOINT SORE TO COCCYX UPON ADMIT. 2+ BLE EDEMA HT: 60 IN. WT: 72.2 KG. BMI: 31.0 IBW: 45 KG LABS: NA 131, K+ 4.2, GLU 101, BUN 11, INSTRUCTOR GROUND SERVICES 0.9, ALB 3.6 MEDS: ARTANE, MYSOLINE, TRICOR, PRAVACHOL, K-TAB, PROTONIX, XARELTO, LEVAQUIN DIET RX: REGULAR. PT IS A FEEDER. PO INTAKE HAS BEEN BITES-50%; AVG OF 37% SINCE ADMIT. PER RN, PT DRINKS BETTER THAN SHE EATS. EST NUTR NEEDS: 8431-3328 KCALS (20-25 KCALS/KG) 68-90 GM PROTEIN (1.5-2.0 GM/KG IBW) 1 ML FLUID/KCAL D-AT NUTRITION RISK W/INADEQUATE ORAL INTAKE R/T ALTERED APPETITE AEB BY INTAKE RECORDS, RN REPORT. I-ENSURE ENLIVE TID STARTED M/E-GOAL: PO INTAKE >/=50% BY DISCHARGE 1)F/U PO INTAKE, SUPPLEMENT, AND POC IN 3-5 DAYS 2)ASSIST NEEDED
--- NOTE | 2017-03-01 16:29 | NUR ---
SIGNIFICANT EVENT: PT. ALERT AND ORIENTED. SPEAKS FEW WORDS, HER HANDS TREMBLE, AND SHE HAS A SLOW SHUFFLING GAIT DUE TO PARKINSONS. SHE IS A 2 ASSIST. IV ANTIBIOTICS FOR THIS PM, NO IV MEDICATION DURING THE DAY. TEMP HAS BEEN 99.2-99.9F WITHOUT TREATMENT, SBP 160-170'S, HR 58-70 BPM, O2 ON ROOM AIR 93-94%. PATIENT HAS BEEN INCONTINENT THREE TIMES DURING THE DAY, USING BEDSIDE COMMODE. NO BM. SHE DOES HAVE A PM. EYEDROPS IN ROOM FOR BOTH EYES DUE TO DISCHARGE. TAKES PO MEDS WELL WITH WATER. HARD OF HEARING. FOLLOW-UP: CONTINUE PLAN OF CARE.
--- NOTE | 2017-03-02 04:33 | NUR ---
Significant Event: A/O x3, tremors to hands from Parkinsons, SBP 140-160s, HR paced with rates 40-60s, RA, afebrile, up with 2 assist to bsc, incontinent at times, small BM, aloe vesta to coccyx and groin area, repositioned Q2hr, denies pain Follow up: home with C possibly this weekend
[2017-03-02 11:42] LABS: BASOPHIL % 0.2 %; EOSINOPHIL # 0.1 K/uL (0.0-0.5); EOSINOPHIL % 1.6 %; HEMATOCRIT 32.9 % (30.0-46.0); HEMOGLOBIN 10.9 g/dL (10.0-15.0); IMMATURE GRANULOCYTE % 0.5 %; LYMPHOCYTE # 0.7 K/uL (0.8-4.0); LYMPHOCYTE % 8.5 %; MCH 27.8 pg (27.0-34.0); MCHC 33.1 gm/dL (32.0-36.5); MCV 83.9 fl (83.0-98.0); MONOCYTE # 0.9 K/uL (0.0-1.0); MONOCYTE % 10.9 %; MPV 9.5 fl (9.4-12.4); NEUTROPHIL # (ANC) 6.4 K/uL (1.8-7.8); NEUTROPHIL % 78.3 %; NRBC % 0 /100WBC (0-0.00); PLATELET COUNT 421 K/uL (150-450); RBC 3.92 M/uL (3.00-5.00); RDW-CV 15.9 % (11.9-14.6); WBC 8.2 K/uL (4.0-11.0)
--- NOTE | 2017-03-02 17:10 | NUR ---
SIGNIFICANT EVENT: PATIENT IS ALERT AND ORIENTED, EXCEPT FOR CONFUSION WITH TIME OF DAY. DUE TO PARKINSONS SPEAKS FEW WORDS, MAKES A GRUNTING NOISE, AND HAS TREMORS OF ARMS AND HANDS. AT 1100 PT HAD A TEMP OF 101.1, A FREQUENT MOIST COUGH, AND NASAL DRAINAGE. TYLENOL GIVEN AND PHYSICIAN NOTIFIED. ORDERS FOR SPEECH EVAL, BLOOD CULTURES, CXR, AND RESPIRATORY CONSULT. SPEECH WILL DO A MBS SATURDAY AND WILL REAVALUATE SATURDAY. NPO PER DOCTOR'S ORDERS EXCEPT SIPS OF WATER WITH ORAL MEDICATION. NS WITH 20 MEQ OF POTASSIUM INFUSING AT 100 ML/HR. AT 1645 O2 WAS APPLIED DUE TO DESAT WITH COUGH OF 87% CONSISTENTLY. CURRENTLY ON 2L. LAST TEMP WAS 99.6. STILL GETTING IV ANTIBIOTICS THIS PM. SBP HAS BEEN 140-150'S. FOLLOW UP: CONTINUE PLAN OF CARE.
[2017-03-03 04:11] LABS: BASOPHIL % 0.4 %; EOSINOPHIL # 0.2 K/uL (0.0-0.5); EOSINOPHIL % 3.3 %; HEMATOCRIT 29.9 % (30.0-46.0); HEMOGLOBIN 9.8 g/dL (10.0-15.0); IMMATURE GRANULOCYTE # 0.1 K/uL (0.0-0.3); IMMATURE GRANULOCYTE % 0.7 %; LYMPHOCYTE # 0.8 K/uL (0.8-4.0); LYMPHOCYTE % 10.7 %; MCH 27.8 pg (27.0-34.0); MCHC 32.8 gm/dL (32.0-36.5); MCV 84.7 fl (83.0-98.0); MONOCYTE # 0.7 K/uL (0.0-1.0); MONOCYTE % 9.7 %; MPV 9.6 fl (9.4-12.4); NEUTROPHIL # (ANC) 5.4 K/uL (1.8-7.8); NEUTROPHIL % 75.2 %; NRBC % 0 /100WBC (0-0.00); PLATELET COUNT 345 K/uL (150-450); RBC 3.53 M/uL (3.00-5.00); WBC 7.2 K/uL (4.0-11.0)
[2017-03-03 04:28] LABS: ANION GAP 10.6 (10.0-19.0); CALCIUM 7.9 mg/dL (8.5-10.5); CREATININE 0.7 mg/dL (0.5-1.1); POTASSIUM 4.6 mMol/L (3.7-5.1)
--- NOTE | 2017-03-03 04:38 | NUR ---
Significant Event:DISORIENTED TO TIME. FOERGETFUL. FLAT EFFECT. TURNED Q 2 HRS SIDE TO SIDE. JOSEP TEMP OF 99.5 THIS SHIFT THEN AFEBRILE. VSS ON 1L. DENIES PAIN. IV TO R) HAND WITH FLUIDS RUNNING AT 100 MLS/H. CONTINUE WITH IV ANTIBIOTICS. INCONTINENT OF URINE X3 THIS SHIFT. NO BM THIS SHIFT. Follow up: CONTINUE WITH PLAN OF CARE.
--- NOTE | 2017-03-03 18:59 | NUR ---
I HAVE REVIEWED THE CHARTING OF NATALIA (ORIENTEE FOR THIS SHIFT) AND I AGREE WITH IT.
--- NOTE | 2017-03-03 19:21 | NUR ---
SIGNIFICANT EVENT: PATIENT REMAIN AFEBRILE THIS SHIFT. LAST TEMP WAS 99.7 AT 1500. SPEECH REAVALUTED AND SAID TAKE PILLS ONE AT A TIME. REMAIN NPO. CAN CRUSH PILLS AND PLACE IN APPLE SAUCE. MBS TOMORROW. NS WITH 20MEQ OF KCL IN LEFT WRIST IV RUNNING AT 100ML/HR. WAITING ON RESULTS FOR BLOOD CULTURE. COUGH IS RARE THIS SHIFT. HOB ELEVATED TO KEEP SATS >90%. PATIENT IS ON OXYGEN 2L. HISTORY OF CHRONIC AFIB. SBP 140-150'S. HR 70-80'S. TACHYPNEA AT 24 RPM AT EVERY ASSESSMENT. SUCTION AT BEDSIDE. 2 ASSIST. USES BEDPAN. FOLLOW UP: SPEECH MBS TOMORROW AM. CONTINUE PLAN OF CARE.
--- NOTE | 2017-03-04 03:13 | NUR ---
Significant Event: Patient is drowsy and disoriented to time. She is confused, but responds when asked questions. PERRLA. Follows commands. Patient has Parkinsons causing a slight tremors. Lungs are diminished in the bases on 1-2L O2. Chronic Afib- pacer. Redness to buttocks and groin- aleovesta applied. Bowel sounds active. Incontinent of bowel and bladder. Failed swallow screen, but patient takes pills crushed with applesauce. Barrium swallow study scheduled for today. Bed locked and low with alarms on. Repo q 2 hours. PIV to L FA infusing without difficulties. Pleasant and cooperative with cares. Follow up: Modified Barrium Swallow study today.
[2017-03-04 04:04] LABS: BASOPHIL % 0.4 %; EOSINOPHIL # 0.4 K/uL (0.0-0.5); EOSINOPHIL % 5.1 %; HEMATOCRIT 30.9 % (30.0-46.0); IMMATURE GRANULOCYTE % 0.6 %; LYMPHOCYTE # 0.9 K/uL (0.8-4.0); LYMPHOCYTE % 12.8 %; MCH 27.6 pg (27.0-34.0); MCHC 32.4 gm/dL (32.0-36.5); MCV 85.4 fl (83.0-98.0); MONOCYTE # 0.7 K/uL (0.0-1.0); MONOCYTE % 9.5 %; MPV 9.7 fl (9.4-12.4); NEUTROPHIL # (ANC) 4.9 K/uL (1.8-7.8); NEUTROPHIL % 71.6 %; NRBC % 0 /100WBC (0-0.00); PLATELET COUNT 350 K/uL (150-450); RBC 3.62 M/uL (3.00-5.00); RDW-CV 16.1 % (11.9-14.6); WBC 6.8 K/uL (4.0-11.0)
[2017-03-04 04:18] LABS: ANION GAP 11.3 (10.0-19.0); CREATININE 0.6 mg/dL (0.5-1.1); POTASSIUM 4.3 mMol/L (3.7-5.1)
--- NOTE | 2017-03-04 13:33 | NUR ---
A - NUTRITION F/U. GLU 97, BUN/SENIOR PROPERTY MANAGER 16/0.6. WT IS STABLE. PASSED MBS TODAY. DIET: MECH SOFT W/ ENSURE TID. INTAKE 50-100%. D - AT RISK W/ INADEQUATE ORAL INTAKE AT TIMES R/T DECREASED APPETITE AEB INTAKE RECORD. I - GOAL: CONT CURRENT INTAKE. M/E - WILL F/U IN 3-5 DAYS.
--- NOTE | 2017-03-04 15:16 | NUR ---
Social visit with patients today. Marilee is sleeping. We discussed discharge plans. I attempted to discuss the option of a skilled stay before returning home but he was not intrested. He states "just give her a few days and she will be up walking again." He also stated that his daughter and grandchildren come over and help when they need it. He states "we have a good system at home and she likes it at home." Will continue to follow and see how she does and discuss discharge plans closer to discharge.
--- NOTE | 2017-03-04 19:37 | NUR ---
Significant Event: Alert, disoriented to place et time; cooperative with cares. VSS, SBPs 150-200s, HRs 60-90s, oxygen at 2 liters. No c/o pain. MBS today, negative; orders for a mechanical softe with thin liquids diet. Up with assist of 2 et walker; up to chair. PT/OT working with patient. Follow up: care management consult for placement
--- NOTE | 2017-03-05 07:13 | NUR ---
Significant Event: Pt A&Ox2, FAC, and JOHNSON with difficulty. Up 2x heavy assist with gaitbelt and walker. Incontinent of urine x2. SBP 140-170s; HR 60-80s paced; afebrile. Lung sounds coarse with expiratory wheezes on 2L NC. L) forearm PIV patent and running NS/20KCl @ 75. Follow up: Continue plan of care, monitor fluid balance and respiratory.
--- NOTE | 2017-03-05 13:42 | NUR ---
Talked with Dr Mosley and then with pt and spouse at bedside. Agreeable to a skilled stay somewhere. Gave options of 4 SNF in town and they would prefer [facility], if they can't accept then agreeable to [facility]. Called Allegra with [facility] and faxed referral. Waiting to see if one can accept.
--- NOTE | 2017-03-05 19:35 | NUR ---
Significant Event: Alert, disoreinted to place. VS, SBPs 160-220s, HRs 60s, oxygen at [address] Mosley notified of SBPs, orders recieved. No c/o pain. At start of shift patient audibly wheezy; RT et Dr. Mosley notified et orders recieved. 40 mg of IV lasix given. Heavy 2 assist with walker; PT/OT working with patient. Patient is to be upright at 90 degrees for all meals et with any oral intake; oral cares after all meals per ST Follow up: d/c to senior living, ? when
--- NOTE | 2017-03-06 05:47 | NUR ---
Significant Event: Pt A&Ox2 - disoriented to place/time, FAC, and JOHNSON with difficulty. Up 2x heavy assist with gaitbelt and walker. Incontinent of urine x1. SBP 160-180s; HR 60-70s paced; afebrile Tmax 99.4. Lung sounds coarse with expiratory wheezes on 1L NC. L) forearm PIV patent, no blood return. Follow up: Continue plan of care, monitor fluid balance and respiratory. Referrals out for placement at assisted living facility.
[2017-03-06 06:38] LABS: ANION GAP 12.9 (10.0-19.0); CALCIUM 8.2 mg/dL (8.5-10.5); CREATININE 0.6 mg/dL (0.5-1.1); POTASSIUM 3.9 mMol/L (3.7-5.1)
--- NOTE | 2017-03-06 09:17 | NUR ---
Received message from Allegra Natarajan with [facility] that she will be over to assess pt for [facility] later this morning.
[2017-03-06 11:05] LABS: BILIRUBIN URINE NEGATIVE (NEGATIVE); BLOOD URINE 150 /UL (NEGATIVE); COLOR URINE YELLOW (YELLOW); GLUCOSE URINE NEGATIVE (NEGATIVE); KETONE URINE NEGATIVE (NEGATIVE); LEUKOCYTES URINE NEGATIVE /UL (NEGATIVE); NITRITE URINE NEGATIVE (NEGATIVE); PROTEIN URINE 100 mg/dL (NEGATIVE); TURBIDITY URINE 1+ (CLEAR); UROBILINOGEN URINE NORMAL (NORMAL)
[2017-03-06 11:14] LABS: EPITHELIAL URINE 0-2 #/HPF (NEGATIVE); WBC URINE 0-2 #/HPF (NEGATIVE)
[2017-03-06 11:21] LABS: AMORPHOUS URINE 3+ (NEGATIVE); BACTERIA URINE FEW (NEGATIVE); HYALINE CAST URINE 0-2 #/LPF (NEGATIVE); MUCUS URINE 1+ (NEGATIVE)
--- NOTE | 2017-03-06 13:12 | NUR ---
Talked with patient and spouse, he reports Allegra from [facility] was here this morning but they were busy in room with patient so she is coming back after 2pm to talk with them. Will followup with Allegra after she sees pt.
--- NOTE | 2017-03-06 19:21 | NUR ---
Significant Event: ORIENTED TO SELF ONLY. VOICE VERY MUFFLED. LUNG SOUNDS COARSE THROUGHOUT. ONE LITER OF OXYGEN. TAKES MEDS WHOLE ONE AT A TIME. REGULAR MECHANICAL SOFT DIET/THIN LIQUIDS. TWO ASSIST WITH TRANSFERS. LEONE CATH INSERTED TODAY FOR STRICT I & O. C/O BLADDER SPASMS WITH ONE TIME DOSE OF B & O SUPPOSITORY ADMINISTERED. PATIENT VERY DROWSY AFTER B & O SUPPOSITORY. AROUSED TO PAINFUL STIMULI. DR SIN UPDATED WITH ORDER FOR VESICARE DAILY. CARDIOLOGY/DR MORAN CONSULTED. IV LASIX THIS SHIFT. PLAN- SNF PLACEMENT WHEN READY.
--- NOTE | 2017-03-07 05:03 | NUR ---
Alert at times but somewhat drowsy throughout shift. Was grimacing and grabbing at stomach and seemed to be in pain. B&O suppository given for pain. Repositioned Q2 hrs. Mostly non-verbal. VSS unremarkable on 1L N/C. lungs clear/dim. only 200ml of urine out of [place] this am. IV to L) forearm flushes with no blood return. senior living placement upon D/C.
[2017-03-07 07:21] LABS: ALBUMIN 2.1 gm/dL (3.5-5.0); ANION GAP 10.4 (10.0-19.0); CREATININE 0.7 mg/dL (0.5-1.1); POTASSIUM 4.4 mMol/L (3.7-5.1); TOTAL PROTEIN 5.7 g/dL (6.0-8.4)
[2017-03-07 07:22] LABS: TOTAL BILIRUBIN 0.4 mg/dL (0.0-1.5)
--- NOTE | 2017-03-07 12:45 | NUR ---
A-NUTRITION F/U 03/06 IV LASIX GIVEN . (+)BM. LABS: GLU 106, BUN 27, ALB 2.1, CRP 11.6 DIET RX: CARDIAC/MECHANICAL SOFT W/ENSURE ENLIVE TID. PO INTAKE HAS BEEN POOR, BUT PT IS DRINKING THE ENSURE ENLIVE. VISITED W/PT AND PT'S TODAY. PT PREFERS STRAWBERRY FLAVOR ENSURE ENLIVE. EST NUTR NEEDS: [id number] KCALS AND 68-90 GM PROTEIN THREE ENSURE PER DAY PROVIDING 1050 KCALS AND 60 GM PROTEIN. THIS IS MEETING 73% OF KCAL NEEDS AND 88% OF THE LOW END OF PROTEIN NEEDS. D-AT NUTRITION RISK W/INADEQUATE ORAL INTAKE R/T ALTERED APPETITE AEB INTAKE RECORDS, PT REPORT I-1)CHANGE ENSURE ENLIVE TID TO STRAWBERRRY ONLY 2)START MAGIC CUP BID M/E-GOAL: PO INTAKE >/=50% BY DISCHARGE 1)F/U PO INTAKE, SUPPLEMENT, AND POC IN 3-5 DAYS 2)ASSIST NEEDED
--- NOTE | 2017-03-07 15:49 | NUR ---
Talked with Dr Mosley, pt won't be ready for discharge until next week, has pericardial effusion which esol teacher assistant will drain. Called Allegra Natarajan RN with [facility] and let her know.
--- NOTE | 2017-03-07 16:56 | NUR ---
Significant Event: ALERT. ANSWERS QUESTIONS, BUT ONLY IN A FEW WORDS. TOOK ALL MEDS WHOLE IN APPLESAUCE. AFEBRILE. HR 59-69'S, PACED RHYTHM. SBP 133-156. CONT. ON MECHANICAL SOFT WITH THIN LIQUIDS. SMALL SIPS. 1 LPM NC, SATS 92%. POOR MOBILITY WITH PT/OT TODAY. POOR APPETITE, BUT DRINKING BOOST SUPPLEMENTS. Follow up: PLAN SNF WHEN READY FOR DISCHARGE.
--- NOTE | 2017-03-08 04:52 | NUR ---
A&O, forgetful at times. Responds with yes or no only. Lungs clearn/dim, titrated from 1L to 2L NC. Stats now 90s. SPB 160s-170s. Temp 98.8-100.1. Current Pericardial Effusion. Parkinsons. Pacemaker. BLE edema 1+. Breakdown to L) Abd. skin fold, barrier cream applied. Heavy 2A. Mechanical soft diet, thin liquids, pills whole in apple sauce.
--- NOTE | 2017-03-08 17:06 | NUR ---
Significant Event: Alert and oriented X 3. Can be a little forgetful. A little cueing. O2 at 2 L nasal cannula. SBP 190's and 200's. HR 60's. Peripheral IV to L/forearm flushes well, slightly sluggish with no blood return. Occasional cough. Cardiac diet, mechanical soft with thin liquids. Medication given crushed in applesauce. Patient does have parkinsons so is shakey. Hard of hearing. Up with full lift and 2 assist. Pleasant and cooperative with cares. Follow up:
[2017-03-08 18:37] LABS: HEMATOCRIT 4 % (30.0-46.0)
--- NOTE | 2017-03-08 19:17 | NUR ---
Significant Event: ASSUMED CARES AT 1625, PT TO MANAGER BRIDGE @ 1625 FOR PERICARDIAL DRAIN PLACEMENT. 470 ML OF FLUID OFF IN MANAGER BRIDGE. DRAIN BAG PRESENT WITH BLOODY DRAINAGE. O2 WEANED BACK TO 2L NC. IV SL'D TO LEFT. SBP IMPROVED TO 120'S-140'S. HR 50'S-60'S. DENIED PAIN. Follow up:
--- NOTE | 2017-03-09 05:26 | NUR ---
A&O. Forgetful at times. Lungs clear/dim on 1L NC. Occasional cough. Cleared with suction. SPB 150-170s. HRs 60s. Pericardial window 03/08. Pericaridal drain with 85ml serous output this shift. L) forearm SL. Cardiac diet, mechanical soft, thin liquids, pills whole in applesauce. Full lift. Incontinent. [id number].
--- NOTE | 2017-03-09 17:03 | NUR ---
Significant Event: PT HAS SPOKEN VERY FEW WORDS THIS SHIFT, BUT ACCORDING TO THE THIS IS NOT NEW. VERY DIAPHORETIC MID DAY, TOOK COVERS OFF, AND USED COOL WASH RAGS, COOLED OFF AND DRIED OFF SHORTLY AFTER THIS. EATS OK WITH ASSIST OF NURSING STAFF, BUT THIS AFTERNOON HAS BEEN COUGHING ALOT. NO CHANGE IN LUNG ASSESSMENTS. AT BEDSIDE ALL SHIFT. SCANT AMT OUT PERICARDIAL DRAIN, DR Carter SAYS HE WILL PULL IT TOMORROW IF THERE REMAINS NOTHING OUT. Follow up: MONITOR
--- NOTE | 2017-03-10 04:47 | NUR ---
Significant event: Patient turned side to side every 2 hours. Incon of both bowel and bladder. Cough throughout shift with little relief noted. Unable to answer orientation questions.
[2017-03-10 05:16] LABS: ANION GAP 9.9 (10.0-19.0); CALCIUM 8.5 mg/dL (8.5-10.5); CREATININE 0.6 mg/dL (0.5-1.1); POTASSIUM 3.9 mMol/L (3.7-5.1)
--- NOTE | 2017-03-10 13:22 | NUR ---
A-NUTRITION F/U 03/08 PERICARDIAL DRAIN PLACEMENT; MAY D/C TODAY SKIN BREAKDOWN TO L)ABD SKIN FOLD. 03/10 LABS: GLU 107. MEDS: PROTONIX, XARELTO DIET RX: PUREE W/STRAWBERRY ENSURE ENLIVE TID. PT EATS WITH ASSISTANCE FROM STAFF. PO INTAKE HAS BEEN 25% SINCE LAST F/U. LIKES THE STRAWBERRY ENSURE ENLIVE. D-AT NUTRITION RISK W/INADEQUATE ORAL INTAKE R/T ALTERED APPETITE AEB INTAKE RECORDS. I-1)CONTINUE W/STAWBERRY ENLIVE TID; ENCOURAGE INTAKE 2)IF PO INTAKE DOES NOT IMPROVE, IF DESIRED, RECOMMEND ENTERAL FEEDINGS M/E-GOAL: PO INTAKE >/=50% BY DISCHARGE 1)F/U PO INTAKE, SUPPLEMENT, AND POC IN 3-5 DAYS 2)ASSIST NEEDED
--- NOTE | 2017-03-11 04:49 | NUR ---
Significant Event: PT ALERT TO SELF, OPENS EYES TO SOUND. SBP 150-180 HR 50-60 SATS 94% 2L NC. PT IS PACED. PT TOTAL LIFT, TURN AND CHANGED Q2 HRS. PT INCONTINENT OF B/B. CRUSH MEDS GIVE WITH APPLESAUCE. PT ON PUREE DIET, BUT THIN LIQUIDS OK. PT WOULD ONLY TAKE SMALL SIPS OF WATER THROUGHOUT SHIFT WHEN OFFERED. PT FAMILY WOULD LIKE PLACEMENT FOR HER AND , POSSIBLE DISCHARGE TUES. PT HAD LOW GRADE TEMP OF 99.6 ALL SHIFT. Follow up: FOLLOW CARE PLAN.
--- NOTE | 2017-03-11 15:36 | NUR ---
ST attempted to see pt. for swallow tx. Pt. asleep elevated in bed and unable to arouse to participate in tx. Pt's present and reported pt. "just fell asleep again" and unable to arouse. Pt's reported feels Parkinson's medication "is working so her hands don't shake, but it just wipes her out." Pt. reported "we are trying to get all of that figured out still." ST educ. pt. and will cont. on 03/12/17 when pt. more awake and able to participate. Pt's agreed.
--- NOTE | 2017-03-11 17:01 | NUR ---
Significant Event: Disoriented to time/place. Forgetful. [id number]. P- 50-60s. Paced with underlying afib and BBB. Afebrile. 2L NC with saturations low to mid 90s. L) hand IV saline locked. Total lift. Turned every 2 hours and PRN. Incotinent of stool/urine. Meds crushed in apple sauce. Puree diet with thin liquids. 1:1 supervision for meals. UA/CX done pending results. Neurology consulted to adjust parkinsons medications due to increased lethargy. Cooperative with cares. at bedside.
[2017-03-11 18:33] LABS: BILIRUBIN URINE NEGATIVE (NEGATIVE); BLOOD URINE 50 /UL (NEGATIVE); COLOR URINE YELLOW (YELLOW); GLUCOSE URINE NEGATIVE (NEGATIVE); KETONE URINE NEGATIVE (NEGATIVE); LEUKOCYTES URINE NEGATIVE /UL (NEGATIVE); NITRITE URINE NEGATIVE (NEGATIVE); PH URINE 6.5 (4.0-8.0); PROTEIN URINE 30 mg/dL (NEGATIVE); SPEC GRAVITY URINE 1.015 (1.003-1.035); TURBIDITY URINE CLEAR (CLEAR); UROBILINOGEN URINE 1 mg/dL (NORMAL)
[2017-03-11 18:43] LABS: BACTERIA URINE MODERATE (NEGATIVE); EPITHELIAL URINE 0-2 #/HPF (NEGATIVE); MUCUS URINE 1+ (NEGATIVE)
--- NOTE | 2017-03-12 04:16 | NUR ---
Patient alert to self. Drowsy. Hold AM dose Mysoline per Dr. Michael. SBP 150-160s. HR 60s. Pacemaker. Lungs slightly coarse on 2L NC. Spontaneous cough. Puree diet/thin liquids. Pills crushed in apple sauce. [id number]. Full lif.
[2017-03-12 10:43] LABS: ANION GAP 9.6 (10.0-19.0); CALCIUM 8.4 mg/dL (8.5-10.5); CREATININE 0.6 mg/dL (0.5-1.1); POTASSIUM 3.6 mMol/L (3.7-5.1)
--- NOTE | 2017-03-12 12:19 | NUR ---
Patient can dc to SNF today if they can accept. Called Allegra at [facility] and faxed update and orders to her. She will call me back and let me know if [facility] or [facility] can accept today. Talked with spouse and let him know, will let him know more when I hear back from Allegra.
--- NOTE | 2017-03-12 14:41 | NUR ---
Allegra called back and [facility] will accept tomorrow and come get pt at 1300. I called VLADIMIR Muhammad and let her know and she will let pt and spouse know. I called Dr Mosley and let her know.
--- NOTE | 2017-03-12 17:23 | NUR ---
Significant Event: OPENS EYES TO VOICE, DOES NOT FOLLOW ALL COMMANDS, MOVES EXTREMITIES SPONTANEOUSLY. HX-PARKINSONS, BILAT HAND TREMOR NOTED. VERY DROWSY. DOES NOT RESPOND TO ORIENTATION QUESTIONS. FEW WORDS. VSS, PACED. AEBRILE. ON 1-2L OXYGEN. FULL LIFT. INCONTINENT. 2 LOOSE BMs TODAY. MINIMAL ORAL INTAKE, 1:1 FEEDER. PUREED DIET WITH THIN LIQUIDS, COUGHS, MEDS CRUSHED IN APPLESAUCE. Follow up: PLANS TO DC TO [facility] TOMORROW AT 1300. MEDS FILLED OUT ON CHART.
--- NOTE | 2017-03-13 05:58 | NUR ---
Significant Event:Patient alert to self and place most assessments. Hard to get a good neuro assessment as patient does not respond all the time, and has a hard time following commands d/t parkinsons. Heart tones distant with rhythm paced. Incontinent of bowel and bladder. Reposition q2h. PIV to L)FA. Follow up:Plan is to discharge to [facility] at 1300.
--- NOTE | 2017-03-13 11:01 | NUR ---
TRANSFER NOTE: ALERT. DROWSEY AT TIMES. KNOWS SELF. MUMBLES SPEECH, HAS HX: OF PARKINSON'S. PT. IS INC. OF BOWEL AND BLADDER. BM 03/12/17. PUREE DIET WITH THIN LIQUIDS. TAKING IN ONLY BITES, TAKES LIQUIDS WELL. 02 1-2 LPM, NC, SATS 91%. AFEBRILE. HR PACED IN 60'S. HAS REDNESS TO BOTTOM, NO OPEN SORES. ALOE VESTA USED WITH ALL INC. AT BEDSIDE DURING DAY. PT. TAKES SMALL PILLS IN PUREE FOOD, BUT LARGE PILLS NEED CRUSHED. ADRIA. HEARING AIDES, UPPER AND LOWER DENTURES, AND GLASSES. PT. NEEDS HELP WITH MEAL FEEDINGS. UNABLE TO BEAR WT. PT. IS A FULL LIFT. CONT. PLAN OF CARES AT [facility].
--- NOTE | 2017-03-13 11:59 | NUR ---
Patient discharging to [facility] today for skilled stay. Nurse has phone number to call report, bilingual social worker from [facility] came and did paperwork this morning in room.
[2017-03-15] MEDS ORDERED: TYLENOL325 MG PO (11:13)
== END 2017-03-13 13:45 | DRG 853 ==
LOC: GMED 17:25 → GPCU 20:07
PROVIDERS: Family Medicine; Internal Medicine Cardiovascular Disease; Specialist; ADMIT Family Medicine
PROC: F00ZJWZ Instrumental Swallowing and Oral Function Assessment using Swallowing Equipment (ICD-10-PCS; principal; 2017-03-02)
PROC: B246ZZZ Ultrasonography of Right and Left Heart (ICD-10-PCS; 2017-03-06)
PROC: B246ZZZ Ultrasonography of Right and Left Heart (ICD-10-PCS; 2017-03-08)
PROC: 02BN3ZX Excision of Pericardium, Percutaneous Approach, Diagnostic (ICD-10-PCS; 2017-03-08)
PROC: B246ZZZ Ultrasonography of Right and Left Heart (ICD-10-PCS; 2017-03-09)
PROC: B246ZZZ Ultrasonography of Right and Left Heart (ICD-10-PCS; 2017-03-10)
DX: A41.9 Sepsis, unspecified organism (principal); I50.33 Acute on chronic diastolic (congestive) heart failure; J69.0 Pneumonitis due to inhalation of food and vomit; I30.9 Acute pericarditis, unspecified; G20 Parkinson's disease; I48.0 Paroxysmal atrial fibrillation; N18.3 Chronic kidney disease, stage 3 (moderate); I12.0 Hypertensive chronic kidney disease with stage 5 chronic kidney disease or end stage renal disease; N39.0 Urinary tract infection, site not specified; E78.5 Hyperlipidemia, unspecified; I25.10 Atherosclerotic heart disease of native coronary artery without angina pectoris; R62.7 Adult failure to thrive; R53.83 Other fatigue; T42.3X5A Adverse effect of barbiturates, initial encounter; R73.03 Prediabetes
CPT/HCPCS: C1729; C9113; G0378; J1644; J1940; J1956; J3480; J7050

== ENCOUNTER → 2017-02-26 | Outpatient (CLI) | payer MEDICARE, BC ==
[~2017-02-26] MED LIST: APRESOLINE25 MG PO; ASPIRIN81 MG PO; BUMETANIDE2 MG PO; COMTAN200 MG PO; COZAAR100 MG PO; FLONASE 50 MCG/16 GM NOSE; K-TAB ER20 MEQ PO; LASIX40 MG PO; LEVOCETIRIZINE D5 MG PO; MYSOLINE50 MG PO; NORVASC10 MG PO; OMEPRAZOLE40 MG PO; POLYTRIM EYE DR10 ML OPHTH; PRAVACHOL40 MG PO; PRIMIDONE50 MG PO; SINEMET 25-1001 EACH PO; SPIRONOLACTONE25 MG PO; TEKTURNA HCT 31 EAC1 PO; TEKTURNA300 MG PO; TOBREX5 ML OPHTH; TOPROL XL 5050 MG PO; TRICOR145 MG PO; TRIHEXYPHENIDYL5 MG PO; TYLENOL325 MG PO; XARELTO15 MG PO
== END | disposition disaster alternative care site (69) ==
LOC: GAMB 16:53
DX: A41.9 Sepsis, unspecified organism (principal); I10 Essential (primary) hypertension; G20 Parkinson's disease; R53.1 Weakness; Z79.899 Other long term (current) drug therapy
CPT/HCPCS: A0425; A0427; J7030

== ENCOUNTER → 2017-03-14 | Outpatient (CLI) | payer MEDICARE, BC ==
[~2017-03-14] MED LIST changes: +ASPIRIN81 MG PO; +COZAAR100 MG PO; +MYSOLINE50 MG PO; +PRIMIDONE50 MG PO; +TOBREX5 ML OPHTH; +TRIHEXYPHENIDYL5 MG PO; +TYLENOL325 MG PO
== END | disposition disaster alternative care site (69) ==
LOC: GAMB 18:02
DX: R50.9 Fever, unspecified (principal); I10 Essential (primary) hypertension; R05 Cough; Z95.0 Presence of cardiac pacemaker; Z79.899 Other long term (current) drug therapy; Z88.2 Allergy status to sulfonamides; Z88.6 Allergy status to analgesic agent; Z88.8 Allergy status to other drugs, medicaments and biological substances